=== PATIENT | male | born 1965 | race Caucasian/White ===

== ENCOUNTER 2016-08-08 16:32 | Emergency (ER) | payer MEDICARE, OTHER ==
[~2016-08-08 16:32] MED LIST: LIPITOR TAB 1010 MG PO
[2016-08-08 20:21] LABS: HEMOGLOBIN 14.3 gm/dl (14.0-17.5); RED BLOOD COUNT 4.99 M/UL (4.20-5.50); WHITE BLOOD COUNT 5.6 K/UL (4.5-11.0)
[2016-08-08 20:46] LABS: BUN/CREATININE RATIO 18 (0-10)
== END 2016-08-09 | disposition home or self-care (01) ==
LOC: ER1 16:32
PROVIDERS: Emergency Medicine
DX: R00.2 Palpitations (principal); R42 Dizziness and giddiness; E11.9 Type 2 diabetes mellitus without complications; I10 Essential (primary) hypertension
CPT/HCPCS: 36415; 71010; 80053; 82550; 82553; 83735; 83874; 84439; 84443; 84484; 85025; 93005; 99285

== ENCOUNTER 2021-04-25 22:20 | Emergency (ER) | payer MEDICARE, OTHER ==
[~2021-04-25 22:20] MED LIST changes: +ANTIVERT 25MG T25 MG PO; +GABAPENTIN600 MG PO; +GLUCOPHAGE1000 MG PO; +INVOKANA300 MG PO; +LASIX40 MG PO; +LOPRESSOR100 MG PO; +PEPCID20 MG PO; +PLETAL 100 MG100 MG PO; +VITAMIN B-122000 MC1 PO; +ZESTORETIC 20-1 EAC1 PO; +ZYLOPRIM 100 M100 MG PO
[2021-04-26 00:03] LABS: HEMOGLOBIN 14.4 gm/dl (14.0-17.5); RED BLOOD COUNT 4.84 M/UL (4.20-5.50); WHITE BLOOD COUNT 7.6 K/UL (4.5-11.0)
[2021-04-26 00:22] LABS: BUN/CREATININE RATIO 27 (0-10)
[2021-04-26] MEDS ORDERED: CEPHALEXIN500 M1 PO (02:46)
== END 2021-04-26 02:52 | disposition home or self-care (01) ==
LOC: ER1 22:20
PROVIDERS: Physician Assistant Medical
DX: I83.92 Asymptomatic varicose veins of left lower extremity (principal); L03.116 Cellulitis of left lower limb; E78.5 Hyperlipidemia, unspecified; E11.9 Type 2 diabetes mellitus without complications; Z88.5 Allergy status to narcotic agent; Z79.01 Long term (current) use of anticoagulants; Z79.82 Long term (current) use of aspirin
CPT/HCPCS: 36415; 80053; 85025; 85379; 99283